=== PATIENT | female | born 1995 | race African-American/Black ===

== ENCOUNTER 2016-08-24 16:15 | Emergency (ER) | payer MEDICAID ==
[~2016-08-24] VITALS: Ht 170.2 cm; Wt 62.3 kg
[~2016-08-24 16:15] MED LIST: PREN-3 PO
[2016-08-24 16:17] VITALS: BP 101/63
== END 2016-08-24 17:09 | disposition home or self-care (01) ==
LOC: ED 16:50
DX: O26.892 Other specified pregnancy related conditions, second trimester (principal); S39.011A Strain of muscle, fascia and tendon of abdomen, initial encounter; Z3A.14 14 weeks gestation of pregnancy; X58.XXXA Exposure to other specified factors, initial encounter; Y93.89 Activity, other specified; Y92.89 Other specified places as the place of occurrence of the external cause; Y99.8 Other external cause status
CPT/HCPCS: 99284

== ENCOUNTER 2016-11-21 22:06 | Outpatient (CLI) | payer MEDICAID ==
[~2016-11-21] VITALS: Ht 170.2 cm; Wt 74.8 kg
[2016-11-21 22:30] VITALS: BP 112/53
== END 2016-11-22 | disposition home or self-care (01) ==
LOC: LDOP 22:06
PROVIDERS: ATTEND Obstetrics & Gynecology
DX: O26.893 Other specified pregnancy related conditions, third trimester (principal); O36.8130 Decreased fetal movements, third trimester, not applicable or unspecified; O62.9 Abnormality of forces of labor, unspecified; O99.513 Diseases of the respiratory system complicating pregnancy, third trimester; J45.909 Unspecified asthma, uncomplicated; R10.9 Unspecified abdominal pain; Z3A.31 31 weeks gestation of pregnancy
CPT/HCPCS: 59025; 81001; 87086; 99211; G0463

== ENCOUNTER 2019-12-12 13:51 | Emergency (ER) | payer MEDICAID ==
[~2019-12-12] VITALS: Ht 170.2 cm; Wt 60.6 kg
--- NOTE | 2019-12-12 15:24 | NUR ---
[employer] F[employer]ICATOR: PT WALKED BACK FROM LOBBY TO ROOM AT THIS TIME. STEADY GAIT. NO ACUTE DISTRESS NOTED AT THIS TIME.
--- NOTE | 2019-12-12 15:37 | NUR ---
PATIENT COMES IN TODAY WITH SEVERE BODY ACHES, THROAT/HEAD PAIN, AND PATIENT STATES WHEN SHE SWALLOWS "IT FEELS LIKE SOMETHING HARD IS STUCK IN MY THROAT." PATIENT STATES SYMPTOMS STARTED THIS MORNING. PATIENT IS [id number], AMBULATED WITH STEADY GAIT TO BATHROOM AND LEFT URINE SAMPLE.
[2019-12-12] MEDS ORDERED: SODIUM CHLORIDE FLUSH 10ML SYR IVF ONE (16:00)
[2019-12-12] MEDS ORDERED: ACETAMINOPHEN 500 MG TABLET PO ONE (16:00)
[2019-12-12] MEDS ORDERED: SODIUM CHLORIDE 0.9% 1,000ML IVBOLUS ONE (16:00)
[2019-12-12] MEDS ORDERED: ACETAMINOPHEN 500 MG TABLET ONE (16:03)
--- NOTE | 2019-12-12 16:29 | NUR ---
1 LITER BOLUS HUNG, TYLENOL GIVEN. NO FUTHER NEEDS AT THIS TIME.
[2019-12-12 16:40] LABS: BASOPHILS % (AUTO) 0 % (0-1); EOSINOPHILS % (AUTO) 0 % (1-7); LYMPHOCYTES # (AUTO) 0.52 x10^3/uL (1-3.4); LYMPHOCYTES % (AUTO) 5 % (22-44); MD NO; MEAN CORPUSCULAR HEMOGLOBIN 30.1 pg (27.0-34.8); MEAN CORPUSCULAR HGB CONC 33.7 g/dL (32.4-35.8); MEAN CORPUSCULAR VOLUME 89.4 fL (80-100); MONOCYTES # (AUTO) 0.24 x10^3/uL (0.2-0.8); MONOCYTES % (AUTO) 2 % (2-9); NEUTROPHILS # (AUTO) 10.07 x10^3/uL (1.8-6.8); NEUTROPHILS % (AUTO) 93 % (42-75); PLATELET COUNT 165 x10^3/uL (130-400); RED BLOOD COUNT 4.33 x10^6/uL (3.82-5.3); RED CELL DISTRIBUTION WIDTH 13.6 % (9.6-15.2)
[2019-12-12 16:50] LABS: ALBUMIN 4.3 g/dL (3.4-5.0); ANION GAP 8 mmol/L (5-15); CALCIUM 8.9 mg/dL (8.5-10.1); CHLORIDE 104 mmol/L (98-107)
--- NOTE | 2019-12-12 16:57 | NUR ---
PATIENT RESTING IN GURNEY, VITAL SIGNS WITHIN NORMAL LIMITS. NO FURTHER NEEDS AT THIS TIME.
[2019-12-12] MEDS ORDERED: DEXAMETHASONE 4 MG TABLET ONE (17:42)
[2019-12-12 17:46] VITALS: BP 112/67
--- NOTE | 2019-12-12 17:50 | NUR ---
PATIENT MEDICATED PER eMAR, VITAL SIGNS WITHIN NORMAL LIMITS. NO FURTHER NEEDS AT THIS TIME.
[2019-12-12] MEDS ORDERED: DEXAMETHASONE 4 MG TABLET PO ONE (18:00)
--- NOTE | 2019-12-12 18:15 | NUR ---
Provider spoke with patient about test results. Patient given discharge instructions and they have confirmed that they understand the instructions, no further instructions. IV removed with tip intact, all patient belongings gathered by patient. Patient ambulatory with steady gait.
== END 2019-12-12 18:16 | disposition home or self-care (01) ==
LOC: ED 16:27
DX: J02.0 Streptococcal pharyngitis (principal); Z20.828 Contact with and (suspected) exposure to other viral communicable diseases; B34.9 Viral infection, unspecified; J45.909 Unspecified asthma, uncomplicated
CPT/HCPCS: 36415; 80048; 82040; 85025; 87635; 87880; 96360; 99283; J7030

== ENCOUNTER 2020-09-23 15:06 | Emergency (ER) | payer MEDICAID ==
[~2020-09-23] VITALS: Ht 170.2 cm; Wt 61.4 kg
[2020-09-23 16:43] LABS: MICROSCOPIC INDICATED
[2020-09-23 16:49] LABS: BASOPHILS % (AUTO) 1 % (0-1); EOSINOPHILS % (AUTO) 1 % (1-7); LYMPHOCYTES % (AUTO) 25 % (22-44); MEAN CORPUSCULAR HGB CONC 34.5 g/dL (32.4-35.8); MEAN PLATELET VOLUME 8.6 fL (7.4-10.4); MONOCYTES % (AUTO) 8 % (2-9); NEUTROPHILS % (AUTO) 66 % (42-75); PLATELET COUNT 182 x10^3/uL (130-400); RED BLOOD COUNT 3.89 x10^6/uL (3.82-5.3)
[2020-09-23 16:51] LABS: ALBUMIN 3.6 g/dL (3.4-5.0); ANION GAP 7 mmol/L (5-15); CALCIUM 8.8 mg/dL (8.5-10.1); CHLORIDE 110 mmol/L (98-107); CREATININE 0.79 mg/dL (0.55-1.02); MD NO
--- NOTE | 2020-09-23 17:12 | NUR ---
PT TO RM FROM LOBBY
--- NOTE | 2020-09-23 17:25 | NUR ---
PT [facility]UL[facility]. PT CO [place] X1 WEEK AND FREQUENT URINATION. PT DENIES ANY PAIN OR BLEEDING WITH URINATION. PT STATED THAT SHE HAS INTERMITTENT LOW BACK PAIN. DENIES ANY N/V/D.
[2020-09-23] MEDS ORDERED: CEFTRIAXONE 1,000 MG ONE (17:51)
[2020-09-23] MEDS ORDERED: KETOROLAC 60 MG/2 ML ONE (17:52)
[2020-09-23] MEDS ORDERED: CEFTRIAXONE 1,000 MG IM ONE (18:00)
[2020-09-23] MEDS ORDERED: KETOROLAC 30 MG/1 ML IM ONE (18:00)
--- NOTE | 2020-09-23 18:43 | NUR ---
NO SIGNS OR SYMPTOMS OF REACTION TO ABX. DISCHARGE INSTRUCTIONS REVIEWED WITH PT. ALL QUESTIONS ANSWERED AT THIS TIME.
[2020-09-23 18:44] VITALS: BP 110/56
== END 2020-09-23 18:46 | disposition home or self-care (01) ==
LOC: ED 15:46
DX: N30.01 Acute cystitis with hematuria (principal); R51.9 Headache, unspecified; R10.2 Pelvic and perineal pain; R10.30 Lower abdominal pain, unspecified; J45.909 Unspecified asthma, uncomplicated
CPT/HCPCS: 36415; 76830; 80048; 81001; 82040; 84703; 85025; 87077; 87086; 87186; 96372; 99284; J1885

== ENCOUNTER 2020-10-22 17:25 | Emergency (ER) | payer MEDICAID ==
[~2020-10-22] VITALS: Ht 170.2 cm; Wt 62.0 kg
[2020-10-22 18:10] LABS: BASOPHILS % (AUTO) 1 % (0-1); EOSINOPHILS % (AUTO) 1 % (1-7); LYMPHOCYTES % (AUTO) 36 % (22-44); MEAN CORPUSCULAR HEMOGLOBIN 30.7 pg (27.0-34.8); MEAN CORPUSCULAR HGB CONC 33.8 g/dL (32.4-35.8); MEAN PLATELET VOLUME 8.2 fL (7.4-10.4); MONOCYTES % (AUTO) 6 % (2-9); NEUTROPHILS % (AUTO) 57 % (42-75); PLATELET COUNT 171 x10^3/uL (130-400); RED BLOOD COUNT 3.95 x10^6/uL (3.82-5.3)
[2020-10-22 18:20] LABS: ALBUMIN 3.7 g/dL (3.4-5.0); ANION GAP 7 mmol/L (5-15); CALCIUM 9.2 mg/dL (8.5-10.1); CHLORIDE 109 mmol/L (98-107); CREATININE 0.73 mg/dL (0.55-1.02)
--- NOTE | 2020-10-22 20:25 | NUR ---
PT AMBULATORY WITH STEADY GAIT FROM LOBBY TO ROOM 1.
[2020-10-22 21:10] LABS: MICROSCOPIC INDICATED
[2020-10-22 21:40] VITALS: BP 112/70
--- NOTE | 2020-10-22 21:40 | NUR ---
Patient given discharge instructions and they have confirmed that they understand the instructions. Patient ambulatory with steady gait.
== END 2020-10-22 21:42 | disposition home or self-care (01) ==
LOC: ED 20:56
DX: O26.891 Other specified pregnancy related conditions, first trimester (principal); R10.30 Lower abdominal pain, unspecified; Z3A.01 Less than 8 weeks gestation of pregnancy
CPT/HCPCS: 36415; 76830; 80048; 81001; 82040; 84702; 85025; 87077; 87086; 99284

== ENCOUNTER 2020-11-27 13:50 | Emergency (ER) | payer MEDICAID ==
[~2020-11-27] VITALS: Ht 170.2 cm; Wt 61.5 kg
[2020-11-27 14:30] LABS: BASOPHILS % (AUTO) 1 % (0-1); EOSINOPHILS % (AUTO) 1 % (1-7); LYMPHOCYTES % (AUTO) 28 % (22-44); MEAN CORPUSCULAR HEMOGLOBIN 31.2 pg (27.0-34.8); MEAN CORPUSCULAR HGB CONC 34.2 g/dL (32.4-35.8); MEAN PLATELET VOLUME 8.6 fL (7.4-10.4); MONOCYTES % (AUTO) 9 % (2-9); NEUTROPHILS % (AUTO) 62 % (42-75); PLATELET COUNT 151 x10^3/uL (130-400); RED BLOOD COUNT 3.52 x10^6/uL (3.82-5.3); RED CELL DISTRIBUTION WIDTH 13.6 % (9.6-15.2)
[2020-11-27 14:36] LABS: ALANINE AMINOTRANSFERASE 20 U/L (12-78); ALBUMIN 3.5 g/dL (3.4-5.0); ANION GAP 5 mmol/L (5-15); CHLORIDE 107 mmol/L (98-107); CREATININE 0.89 mg/dL (0.55-1.02)
--- NOTE | 2020-11-27 14:43 | NUR ---
PT RESTING ON GURNEY W/ CALL LIGHT IN REACH AND SIDE RAILS UPX2. RESP EVEN AND UNLABORED, RUDYN. VSS. AWAITING ED EVAL.
[2020-11-27 14:53] LABS: ALKALINE PHOSPHATASE 37 U/L (45-117); BILIRUBIN,TOTAL 0.2 mg/dL (0.2-1.0); TOTAL PROTEIN 7.5 g/dL (6.4-8.2)
--- NOTE | 2020-11-27 14:57 | NUR ---
PT TO US
--- NOTE | 2020-11-27 15:31 | NUR ---
TASK RN NOTE: PT SITTING UP WATCHING TELEVISION. NAD NOTED AT THIS TIME. CURRENTLY AWAITING US RESULTS. SIDE RAILS UP, CALL LIGHT IN REACH. VSS.
--- NOTE | 2020-11-27 15:32 | NUR ---
PT CHART UP FOR RECHECK.
--- NOTE | 2020-11-27 16:30 | NUR ---
CLAUDIO AT BEDSIDE FOR PELVIC
[2020-11-27 16:56] VITALS: BP 110/49
--- NOTE | 2020-11-27 17:06 | NUR ---
Patient given discharge instructions and they have confirmed that they understand the instructions. Patient ambulatory with steady gait.
== END 2020-11-27 17:08 | disposition home or self-care (01) ==
LOC: ED 16:17
DX: O03.4 Incomplete spontaneous abortion without complication (principal); G43.909 Migraine, unspecified, not intractable, without status migrainosus; J45.909 Unspecified asthma, uncomplicated; R00.0 Tachycardia, unspecified
CPT/HCPCS: 36415; 76801; 80053; 84702; 85025; 99284